=== PATIENT | male | born 1990 ===

== ENCOUNTER 2017-11-15 14:47 | Emergency (ER) | payer BC, OTHER ==
[2017-11-15 15:03] VITALS: BP 143/83
--- NOTE | 2017-11-15 15:15 | UC ---
UC General HPI - HPI Summary HPI Summary: began satruday with some subjective fever and chills then nausea. the nausea/f/c 's has improved; however, now has diarrhea x 5 since last pm. no blood or mucous in stool. no abdominal pain, sick contacts, recent antibiotic use, IBD or travel to unindustrialized areas. self tx ing with gatorade, bananas and Imdodium which is helping. - History of Current Complaint Chief Complaint: UCGI Stated Complaint: NAUSEA,FEVER,DIARRHEA Time Seen by Provider: 11/15/17 15:06 Hx Obtained From: Patient Onset/Duration: Gradual Onset Timing: Constant Pain Intensity: 0 Aggravating: food Associated Signs & Symptoms: Positive: Diarrhea, Fever, Nausea. Negative: Abdominal Pain, Vomiting - Allergy/Home Medications Allergies/Adverse Reactions: Allergies Allergy/AdvReac Type Severity Reaction Status Date / Time No Known Allergies Allergy Verified 11/15/17 15:01 Home Medications: Home Medications NK [No Home Medications Reported] 11/15/17 [History Confirmed 11/15/17] PMH/Surg Hx/FS Hx/Imm Hx - Additional Past Medical History Additional PMH: anxiety, depression, ADHD when younger but no tx now because improved - Surgical History Surgical History: None - Family History Known Family History: Positive: Other - healthy - Social History Occupation: Employed Full-time Alcohol Use: Occasionally Substance Use Type: None Smoking Status (MU): Never Smoked Tobacco - Immunization History Vaccination Up to Date: Yes Review of Systems Constitutional: Fever, Chills Skin: Negative Eyes: Negative ENT: Negative Respiratory: Negative Cardiovascular: Negative Gastrointestinal: Diarrhea, Nausea Genitourinary: Negative Motor: Negative Neurovascular: Negative Musculoskeletal: Negative Neurological: Negative Psychological: Negative Is Patient Immunocompromised?: No All Other Systems Reviewed And Are Negative: Yes Physical Exam Triage Information Reviewed: Yes Appearance: Well-Appearing Vital Signs: Initial Vital Signs Temp 97.8 F 11/15/17 14:57 Pulse 102 11/15/17 14:57 Resp 18 11/15/17 14:57 BP 143/83 11/15/17 14:57 Pulse Ox 97 11/15/17 14:57 Vital Signs Reviewed: Yes Eyes: Positive: Conjunctiva Clear ENT: Positive: Pharynx normal, TMs normal. Negative: Nasal congestion, Nasal drainage Neck: Positive: Supple, Nontender, No Lymphadenopathy Respiratory: Positive: Lungs clear, Normal breath sounds Cardiovascular: Positive: RRR, No Murmur, Brisk Capillary Refill, Other: - not tachycardic on exam Abdomen Description: Positive: Nontender, No Organomegaly, Soft. Negative: CVA Tenderness (R), CVA Tenderness (L), Distended, Guarding Bowel Sounds: Positive: Hyperactive Musculoskeletal: Positive: ROM Intact Neurological: Positive: Alert Psychological: Positive: Age Appropriate Behavior Skin Exam: Normal Course/Dx - Course Course Of Treatment: non toxic, no acute abdomen. no risk for bacterial or parasitic infections. tx supportive. pt has been a pt of [facility] thus given referal to them. - Differential Dx - Multi-Symptom Provider Diagnoses: Nausea. Diarrhea. Discharge - Sign-Out/Discharge Documenting (check all that apply): Discharge/Admit/Transfer - Discharge Plan Condition: Stable Disposition: HOME Patient Education Materials: Acute Nausea and Vomiting (ED), Acute Diarrhea (ED ) Forms: *Work Release Referrals: INECY Curry [Medical Doctor] - - Billing Disposition and Condition Condition: STABLE Disposition: HOME
== END 2017-11-15 15:26 | disposition home or self-care (01) ==
LOC: UCCORT 14:47
DX: R11.0 Nausea (principal); R19.7 Diarrhea, unspecified
CPT/HCPCS: 99202; G0463